=== PATIENT | female | born 1975 | race American Indian/Alaskan Native ===

== ENCOUNTER 2019-10-26 15:37 | Emergency (ER) | payer OTHER ==
--- NOTE | 2019-10-26 18:14 | Event Note ---
ED Screening Note ED Screening Note: 44 yo female with MP 09/02/2019 +UPT +DAÍZ, abd pain headache, no vb This initial assessment/diagnostic orders/clinical plan/treatment(s) is/are subject to change based on patients health status, clinical progression and re- assessment by fellow clinical providers in the ED. Further treatment and workup at subsequent clinical providers discretion. Patient/guardian urged not to elope from the ED as their condition may be serious if not clinically assessed and managed. Initial orders include: cbc hcg bmp us
[2019-10-26 18:51] LABS: Basophils % (Auto) 0.5 % (0.0-1.8); Eosinophils % (Auto) 0.1 % (0.0-4.3); Hemoglobin 11.4 gm/dl (10.1-14.3); Lymphocytes # (Auto) 0.7 K/mm3 (1.2-5.4); Lymphocytes % (Auto) 12.3 % (13.4-35.0); Mean Corpuscular HGB Conc 32 % (30-34); Mean Corpuscular Volume 71 fl (79-97); Monocytes # (Auto) 0.5 K/mm3 (0.0-0.8); Monocytes % (Auto) 8.8 % (0.0-7.3); Platelet Count 206 K/mm3 (140-440); Red Blood Count 5.04 M/mm3 (3.65-5.03); Red Cell Distribution Width 14.8 % (13.2-15.2)
[2019-10-26 18:53] LABS: Bacteria,Urine 1+ /HPF (Negative); Bilirubin,Urine NEG (Negative); Blood,Urine NEG (Negative); Color,Urine Yellow (Yellow); Mucus,Urine 3+ /HPF; Urobilinogen,Urine < 2.0 mg/dL (<2.0)
[2019-10-26 19:19] LABS: BUN/Creatinine Ratio 12; Blood Urea Nitrogen 7 mg/dL (7-17); Calcium 9.2 mg/dL (8.4-10.2); Hemolysis Index 5
[2019-10-26] MEDS ORDERED: ONDANSETRON 4 MG ODT TAB PO ONE (20:11)
[2019-10-26] MEDS ORDERED: ACETAMINOPHEN 500 MG TAB PO ONE (20:11)
--- NOTE | 2019-10-26 21:16 | Emergency Department Report ---
ED Abdominal Pain HPI - General Chief Complaint: Back Pain/Injury Stated Complaint: BACK PAIN 7 WKS PREG Source: patient Mode of arrival: Ambulatory Limitations: No Limitations - History of Present Illness Initial Comments: Patient is A0 44-year-old [place] female with no past medical history and is approximately 6-7 weeks gestation, and who presents to the ED with a compl aint of acute onset persistent epigastric pain and low back pain, nasal and sinus congestion, intermittent fever and chills, frontal sinus pressure and headache, dry cough, persistent diffuse body aches and pains for the last 2 days. Patient denies dizziness, syncope, chest pain, shortness of breath, dysuria, pelvic pain, vaginal bleeding, change in vision, palpitations or sore throat. Patient states that she has not taken any medications at home for pain because she was not sure of what to take. MD Complaint: abdominal pain, other (nasal and sinus congestion; dry cough; frontal sinus congestion and pressure) -: Sudden, days(s) (2) Location: epigastric Radiation: none Migration to: epigastric Severity: severe Severity scale (0 -10): 10 Quality: aching, sharp Consistency: constant Improves With: nothing Worsens With: nothing Associated Symptoms: denies other symptoms, anorexia. denies: nausea, diarrhea, fever, chills, constipation, dysuria, hematemesis, hematochezia, melena, hematuria - Related Data Previous Rx's Medication Instructions Recorded Last Taken Type Acetaminophen [Mapap] 500 mg PO Q6H PRN #30 tablet 10/26/19 Unknown Rx Amoxicillin [Trimox CAP] 500 mg PO Q8H #30 capsule 10/26/19 Unknown Rx Brompheniramine/Pseudoephed/Dm 5 ml PO Q6H PRN #118 ml 10/26/19 Unknown Rx [Bromfed Dm Cough Syrup] Famotidine [Pepcid] 20 mg PO Q12H #30 tablet 10/26/19 Unknown Rx Oseltamivir [Tamiflu] 75 mg PO Q12H #10 cap 10/26/19 Unknown Rx Promethazine [Phenergan] 25 mg PO Q6HR PRN #24 tab 10/26/19 Unknown Rx Methyldopa [Aldomet] 250 mg PO Q12H #60 tablet 10/27/19 Unknown Rx Allergies Allergy/AdvReac Type Severity Reaction Status Date / Time No Known Allergies Allergy Verified 10/27/19 00:44 ED Review of Systems ROS: Stated complaint: BACK PAIN 7 WKS PREG Other details as noted in HPI Constitutional: denies: chills, fever Eyes: denies: eye pain, eye discharge, vision change ENT: congestion, other (frontal sinus congestion; frontal sinus pressure). denies: ear pain, throat pain Respiratory: cough. denies: shortness of breath, wheezing Cardiovascular: denies: chest pain, palpitations, dyspnea on exertion, edema, syncope, paroxysmal nocturnal dyspnea Endocrine: no symptoms reported Gastrointestinal: abdominal pain (epigastric pain). denies: nausea, diarrhea Genitourinary: denies: urgency, dysuria, discharge Musculoskeletal: arthralgia, myalgia. denies: back pain, joint swelling Skin: denies: rash, lesions Neurological: headache (frontal sinus pressure). denies: weakness, paresthesias Psychiatric: denies: anxiety, depression Hematological/Lymphatic: denies: easy bleeding, easy bruising ED Past Medical Hx - Past Medical History Previous Medical History?: Yes - Surgical History Past Surgical History?: Yes Additional Surgical History: - Social History Smoking Status: Never Smoker Substance Use Type: None - Medications Home Medications: Home Medications Medication Instructions Recorded Confirmed Last Taken Type Acetaminophen [Mapap] 500 mg PO Q6H PRN #30 tablet 10/26/19 Unknown Rx Amoxicillin [Trimox CAP] 500 mg PO Q8H #30 capsule 10/26/19 Unknown Rx Brompheniramine/Pseudoephed/Dm 5 ml PO Q6H PRN #118 ml 10/26/19 Unknown Rx [Bromfed Dm Cough Syrup] Famotidine [Pepcid] 20 mg PO Q12H #30 tablet 10/26/19 Unknown Rx Oseltamivir [Tamiflu] 75 mg PO Q12H #10 cap 10/26/19 Unknown Rx Promethazine [Phenergan] 25 mg PO Q6HR PRN #24 tab 10/26/19 Unknown Rx Methyldopa [Aldomet] 250 mg PO Q12H #60 tablet 10/27/19 Unknown Rx ED Physical Exam - General Limitations: No Limitations General appearance: alert, in no apparent distress - Head Head exam: Present: atraumatic, normocephalic, normal inspection - Eye Eye exam: Present: normal appearance, PERRL, EOMI Pupils: Present: normal accommodation - ENT ENT exam: Present: normal orophraynx, mucous membranes moist, TM's normal bi laterally, normal external ear exam, other (grossly congested nasal passages; palpable frontal sinus tenderness) - Neck Neck exam: Present: normal inspection, full ROM. Absent: tenderness, lymphadenopathy - Respiratory Respiratory exam: Present: normal lung sounds bilaterally. Absent: respiratory distress, wheezes, rales, rhonchi, chest wall tenderness, accessory muscle use - Cardiovascular Cardiovascular Exam: Present: normal rhythm, tachycardia, normal heart sounds. Absent: systolic murmur, diastolic murmur, rubs, gallop - GI/Abdominal GI/Abdominal exam: Present: soft, tenderness (epigastric), normal bowel sounds. Absent: guarding, rebound, hyperactive bowel sounds, hypoactive bowel sounds, organomegaly - Extremities Exam Extremities exam: Present: normal inspection, full ROM, normal capillary refill - Back Exam Back exam: Present: normal inspection. Absent: full ROM, tenderness, CVA tenderness (L), muscle spasm - Neurological Exam Neurological exam: Present: alert, oriented X3, CN II-XII intact, normal gait, reflexes normal - Psychiatric Psychiatric exam: Present: normal affect, normal mood - Skin Skin exam: Present: warm, dry, intact, normal color. Absent: rash ED Course Vital Signs 10/26/19 10/26/19 10/26/19 15:45 21:37 23:19 Temperature 99.1 F Pulse Rate 111 H 114 H 102 H Respiratory 18 18 20 Rate Blood Pressure 145/93 Blood Pressure 177/112 168/86 [Right] O2 Sat by Pulse 98 98 98 Oximetry 10/27/19 10/27/19 10/27/19 00:38 00:46 01:12 Temperature Pulse Rate 99 H 100 H 98 H Respiratory 18 16 Rate Blood Pressure 192/98 Blood Pressure 192/98 165/101 [Right] O2 Sat by Pulse 100 98 Oximetry - Reevaluation(s) Reevaluation #1: 10/27/19 01:29 Prior to discharge from the ED, patient's heart rate improved significantly to 98 beats a minute, blood pressure was improved significantly. Patient felt better and the headache resolved with medications and treatment. Patient was advised to return to the ED in 48 hours for recheck of hCG Quant. Patient was otherwise advised to follow up with the CONTRACT [facility] physician Dr. Balbina Garcia in 5-7 days for reevaluation. ED Medical Decision Making - Lab Data Result diagrams: 10/26/19 18:41 10/26/19 18:41 - Radiology Data Radiology results: report reviewed, image reviewed Findings [facility] [address] [place] [address] Ultrasound Report Signed Patient: STEPHANIE MARINA MR#: [id number] : 1975 Acct:[id number] Age/Sex: 44 / F ADM Date: 10/26/19 Loc: ED Attending Dr: Ordering Physician: Landy Hernandez MD Date of Service: 10/26/19 Procedure(s): US OB transvaginal Accession Number(s): [id number] cc: Landy Hernandez MD Pelvic ultrasound Doppler INDICATION: Early according to the patient. Abdominal pain FINDINGS: The uterus measures 10 x 4 x 5 cm. The endometrial thickness is about 8 mm. No intrauterine is identified. There are several fibroids identified within the uterus that measure about 2 cm in diameter. There are several cysts within the right ovary and there is a peripherally echogenic cyst measuring 1.2 cm in diameter within the right ovary that demonstrates some peripheral flow. The left ovary is grossly unremarkable. IMPRESSION: 1. Peripherally echogenic 1.7 cm cyst adjacent to the right adnexa is ultimately nonspecific and early ectopic unfortunately cannot be completely excluded given the sonographic appearance, especially given the elevated hCG. No intrauterine is identified at this time. 2. Fibroid uterus. Signer Name: Kris Del Cid MD Signed: 10/26/2019 9:21 PM Workstation Name: [id number] Transcribed By: BC Dictated By: Kris Del Cid MD Electronically Authenticated By: Kris Del Cid MD Signed Date/Time: 10/26/192120 DD/ 17 TD/TT: - Medical Decision Making This is a 44-year-old, -[place] female who is approximately 6-7 weeks gestation who presented to the ED with epigastric pain, nasal and sinus congesti on, low back pain, persistent dry cough with frontal sinus pressure and headache for 2 days. In the ED, patient is alert and oriented 3 and is not in distress but tachycardic in triage. Lab test results were reviewed and show acute hyponatremia of 134 mmol per liter and hCG Quant 856.4. Rapid influenza test is positive for type A influenza. The transvaginal ultrasound shows peripherally echogenic 1.7 cm cyst adjacent to the right adnexa which is ultimately nonspecific and early ectopic unfortunately cannot be completely excluded given the sonographic appearance, especially given the elevated hCG. No intrauterine is identified at this time. There is also fibroid uter us. The patient's pain was epigastric and not low abdominal in presentation but the patient also complained of lower back pain. Patient however did not present with any vaginal bleeding at this time. Even though the ectopic is in the differential, repeat serial hCG is advisable in this scenario given the fact that the hCG Quant is 856.4. 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 Balbina Garcia also advised that the patient be discharged home on ectopic precautions while at the same time treating upper respiratory infections, and how high return to the ED for hCG Quant repeat and possibly another transvaginal ultrasound is the hCG Quant is greater than 1500. Patient shall therefore be treated for acute upper respiratory infection, sinusitis, bronchitis and epigastric pain. Patient also advised to return to the ED or to her [employer] [facility] physician in 2 days for serial hCG Quant studies repeat. - Differential Diagnosis URI; Flu, Bronchitis; Sinusitis; GERD; Ectopic ; UTI Critical care attestation.: If time is entered above; I have spent that time in minutes in the direct care of this critically ill patient, excluding procedure time. ED Disposition Clinical Impression: Acute non-recurrent frontal sinusitis, Sinus headache, Influenza due to influen za virus, type A, human, Uncontrolled stage 2 hypertension Acute bronchitis Qualifiers: Bronchitis organism: unspecified organism Qualified Code(s): J20.9 - Acute bronchitis, unspecified Abdominal pain in Qualifiers: Trimester: first trimester Qualified Code(s): O26.891 - Other specified related conditions, first trimester Disposition: - TO HOME OR SELFCARE Is pt being admited?: No Does the pt Need Aspirin: No Condition: Stable Instructions: Influenza (ED), Acute Bronchitis (ED), Gastroesophageal Reflux Disease (ED), Acute Bacterial Rhinosinusitis (ED), Abdominal Pain in (ED), Hypertension (ED) Additional Instructions: Take medications with food drink plenty of fluids and follow-up with the [employer] [facility] physician 5-7 days for reevaluation. Return to the ED in 2 days or 48 hours for recheck of hCG Quant to recheck your . Prescriptions: Methyldopa [Aldomet] 250 mg PO Q12H #60 tablet Brompheniramine/Pseudoephed/Dm [Bromfed Dm Cough Syrup] 5 ml PO Q6H PRN #118 ml PRN Reason: Cough Acetaminophen [Mapap] 500 mg PO Q6H PRN #30 tablet PRN Reason: Pain , Severe (7-10) Famotidine [Pepcid] 20 mg PO Q12H #30 tablet Promethazine [Phenergan] 25 mg PO Q6HR PRN #24 tab PRN Reason: Nausea Oseltamivir [Tamiflu] 75 mg PO Q12H #10 cap Amoxicillin [Trimox CAP] 500 mg PO Q8H #30 capsule Referrals: BALBINA GARCIA [Registered Nurse] - 3-5 Days Time of Disposition: 01:26 Print Language: UZBEK
--- NOTE | 2019-10-26 21:25 | Ultrasound Report ---
Pelvic ultrasound Doppler INDICATION: Early according to the patient. Abdominal pain FINDINGS: The uterus measures 10 x 4 x 5 cm. The endometrial thickness is about 8 mm. No intrauterine is identified. There are several fibroids identified within the uterus that measure about 2 cm in diameter. There are several cysts within the right ovary and there is a peripherally echogeni c cyst measuring 1.2 cm in diameter within the right ovary that demonstrates some peripheral flow. Th e left ovary is grossly unremarkable. IMPRESSION: 1. Peripherally echogenic 1.7 cm cyst adjacent to the right adnexa is ultimately nonspecific and luis armando y ectopic unfortunately cannot be completely excluded given the sonographic appearance, sangita ecially given the elevated hCG. No intrauterine is identified at this time. 2. Fibroid uterus. Signer Name: Kris Del Cid MD Signed: 10/26/2019 9:21 PM Workstation Name: [id number]
[2019-10-26] MEDS ORDERED: SODIUM CHLORIDE 0.9% 1000 ML 1,000 ML IV ONE (21:40)
[2019-10-26] MEDS ORDERED: METOCLOPRAMIDE 10 MG/2 ML INJ IV ONE (21:41)
[2019-10-26] MEDS ORDERED: diphenhydrAMINE 50 MG/ML VIAL IV ONE (21:41)
[2019-10-26] MEDS ORDERED: FAMOTIDINE 20 MG/2 ML INJ IV ONE (21:42)
[2019-10-27 01:13] VITALS: BP 165/101
== END 2019-10-27 01:48 | disposition home or self-care (01) ==
LOC: ED 15:37
DX: O99.511 Diseases of the respiratory system complicating pregnancy, first trimester (principal); J20.9 Acute bronchitis, unspecified; J10.1 Influenza due to other identified influenza virus with other respiratory manifestations; O26.891 Other specified pregnancy related conditions, first trimester; R10.9 Unspecified abdominal pain; O16.1 Unspecified maternal hypertension, first trimester; Z98.890 Other specified postprocedural states; Z79.2 Long term (current) use of antibiotics; Z79.899 Other long term (current) drug therapy; Z3A.01 Less than 8 weeks gestation of pregnancy
CPT/HCPCS: 36415; 76801; 76817; 80048; 81001; 84702; 85025; 87400; 96374; 96375; 99284; J1200; J2765; J7030; Q0162

== ENCOUNTER 2021-08-02 12:00 | Outpatient (CLI) | payer OTHER, MEDICAID ==
[2021-08-02] MEDS ORDERED: LACTATED RINGERS 1,000 ML ONE (12:50)
[2021-08-02 13:23] LABS: Bacteria,Urine 2+ /HPF (Negative); Bilirubin,Urine NEG (Negative); Blood,Urine NEG (Negative); Color,Urine Straw (Yellow); Protein,Urine <15 mg/dL mg/dL (Negative); Urobilinogen,Urine < 2.0 mg/dL (<2.0)
[2021-08-02 13:27] VITALS: BP 139/81
[2021-08-02 13:38] LABS: Hematocrit 30.3 % (30.3-42.9); Hemoglobin 9.3 gm/dl (10.1-14.3); Mean Corpuscular HGB Conc 31 % (30-34); Mean Corpuscular Volume 73 fl (79-97); Platelet Count 281 K/mm3 (140-440); Red Blood Count 4.14 M/mm3 (3.65-5.03); Red Cell Distribution Width 14.1 % (13.2-15.2)
[2021-08-02 14:00] LABS: Alanine Aminotransferase 21 units/L (7-56); Uric Acid 3.4 mg/dL (3.5-7.6)
--- NOTE | 2021-08-02 14:31 | Ultrasound Report ---
ULTRASOUND OBSTETRIC LIMITED ULTRASOUND BIOPHYSICAL PROFILE INDICATION / CLINICAL INFORMATION: bpp/elizabeth. Maternal hypertension COMPARISON: None available. FINDINGS: BREATHING MOVEMENT = 2 GROSS BODY MOVEMENT = 2 TONE = 2 QUALITATIVE AMNIOTIC FLUID VOLUME = 2 TOTAL BIOPHYSICAL SCORE = 8/8 AMNIOTIC FLUID INDEX (cm) = 21 PRESENTATION: Cephalic. HEART RATE (beats per minute): 134 ADDITIONAL FINDINGS: 2.3 cm fibroid anterior uterine body. IMPRESSION: 1. Biophysical Score = 8/8 Signer Name: Slava Chauhan MD Signed: 08/02/2021 2:27 PM Workstation Name: [id number]
[2021-08-02 15:56] LABS: Creatinine,Urine 39.2 mg/dL (0.1-20.0); Protein/Creatinine Ratio,Urine 0.2
== END 2021-08-02 16:00 | disposition home or self-care (01) ==
LOC: TRG 12:00 → APU 12:00 → TRG 16:00
PROVIDERS: ATTEND Student in an Organized Health Care Education/Training Program
DX: O13.3 Gestational [pregnancy-induced] hypertension without significant proteinuria, third trimester (principal); Z3A.32 32 weeks gestation of pregnancy
CPT/HCPCS: 36415; 59025; 76815; 76819; 81001; 82565; 82570; 83615; 84156; 84450; 84460; 84550; 85027; 96360